=== PATIENT | female | born 1965 | race Caucasian/White ===

== ENCOUNTER 2024-11-24 00:17 | Day surgery (SDC) | payer OTHER ==
[~2024-11-24 00:17] MED LIST: FURO40 PO; METF500C PO; POTA10T PO; RAMI5 PO
[2024-11-24] MEDS ORDERED: Lidocaine HCl 4% Cream 5 GM ONE (12:43)
== END 2024-11-24 23:00 | disposition home or self-care (01) ==
LOC: WOUND 00:17
DX: E11.622 Type 2 diabetes mellitus with other skin ulcer (principal); L97.812 Non-pressure chronic ulcer of other part of right lower leg with fat layer exposed; I87.2 Venous insufficiency (chronic) (peripheral); E11.51 Type 2 diabetes mellitus with diabetic peripheral angiopathy without gangrene; I10 Essential (primary) hypertension; E66.01 Morbid (severe) obesity due to excess calories; Z88.6 Allergy status to analgesic agent; G47.30 Sleep apnea, unspecified
CPT/HCPCS: A9270; G0463

== ENCOUNTER 2024-12-01 10:38 | Day surgery (SDC) | payer OTHER ==
[2024-12-01] MEDS ORDERED: Lidocaine HCl 4% Cream 5 GM ONE (14:35)
== END 2024-12-01 23:00 | disposition home or self-care (01) ==
LOC: WOUND 10:38
DX: E11.622 Type 2 diabetes mellitus with other skin ulcer (principal); L97.812 Non-pressure chronic ulcer of other part of right lower leg with fat layer exposed; I87.2 Venous insufficiency (chronic) (peripheral); E11.51 Type 2 diabetes mellitus with diabetic peripheral angiopathy without gangrene; I10 Essential (primary) hypertension
CPT/HCPCS: A9270

== ENCOUNTER 2024-12-20 03:32 | Day surgery (SDC) | payer OTHER ==
[2024-12-20] MEDS ORDERED: Lidocaine HCl 4% Cream 5 GM ONE (13:25)
== END 2024-12-20 23:00 | disposition home or self-care (01) ==
LOC: WOUND 03:32
DX: E11.622 Type 2 diabetes mellitus with other skin ulcer (principal); L97.812 Non-pressure chronic ulcer of other part of right lower leg with fat layer exposed; I87.2 Venous insufficiency (chronic) (peripheral); E11.51 Type 2 diabetes mellitus with diabetic peripheral angiopathy without gangrene; I10 Essential (primary) hypertension
CPT/HCPCS: A6196; A9270

== ENCOUNTER 2024-12-29 01:08 | Day surgery (SDC) | payer OTHER ==
[2024-12-29] MEDS ORDERED: Lidocaine HCl 4% Cream 5 GM ONE (14:08)
== END 2024-12-29 23:00 | disposition home or self-care (01) ==
LOC: WOUND 01:08
DX: E11.622 Type 2 diabetes mellitus with other skin ulcer (principal); L97.812 Non-pressure chronic ulcer of other part of right lower leg with fat layer exposed; E11.51 Type 2 diabetes mellitus with diabetic peripheral angiopathy without gangrene; I10 Essential (primary) hypertension; I87.2 Venous insufficiency (chronic) (peripheral)
CPT/HCPCS: A6196; A9270

== ENCOUNTER 2025-01-05 00:36 | Day surgery (SDC) | payer OTHER ==
[2025-01-05] MEDS ORDERED: Lidocaine HCl 4% Cream 5 GM ONE (15:14)
== END 2025-01-05 23:00 | disposition home or self-care (01) ==
LOC: WOUND 00:36
DX: E11.622 Type 2 diabetes mellitus with other skin ulcer (principal); L97.812 Non-pressure chronic ulcer of other part of right lower leg with fat layer exposed; I87.2 Venous insufficiency (chronic) (peripheral); E11.51 Type 2 diabetes mellitus with diabetic peripheral angiopathy without gangrene; I10 Essential (primary) hypertension; E66.01 Morbid (severe) obesity due to excess calories; Z68.43 Body mass index [BMI] 50.0-59.9, adult
CPT/HCPCS: A6196; A9270

== ENCOUNTER 2025-01-20 03:35 | Day surgery (SDC) | payer OTHER ==
[~2025-01-20 03:35] MED LIST changes: +Lidocaine HCl 4% Cream 5 GM ONE
== END 2025-01-20 23:00 | disposition home or self-care (01) ==
LOC: WOUND 03:35
DX: E11.622 Type 2 diabetes mellitus with other skin ulcer (principal); L97.812 Non-pressure chronic ulcer of other part of right lower leg with fat layer exposed; E11.51 Type 2 diabetes mellitus with diabetic peripheral angiopathy without gangrene; I87.2 Venous insufficiency (chronic) (peripheral); I10 Essential (primary) hypertension; E66.01 Morbid (severe) obesity due to excess calories; Z68.43 Body mass index [BMI] 50.0-59.9, adult
CPT/HCPCS: A9270

== ENCOUNTER 2025-02-09 06:48 | Day surgery (SDC) | payer OTHER ==
[~2025-02-09 06:48] MED LIST changes: -Lidocaine HCl 4% Cream 5 GM ONE
[2025-02-09] MEDS ORDERED: Lidocaine HCl 4% Cream 5 GM ONE (14:20)
== END 2025-02-09 23:00 | disposition home or self-care (01) ==
LOC: WOUND 06:48
DX: E11.622 Type 2 diabetes mellitus with other skin ulcer (principal); L97.812 Non-pressure chronic ulcer of other part of right lower leg with fat layer exposed; E11.51 Type 2 diabetes mellitus with diabetic peripheral angiopathy without gangrene; I10 Essential (primary) hypertension
CPT/HCPCS: A9270